=== PATIENT | male | born 1965 | race Caucasian/White ===

== ENCOUNTER 2018-07-20 09:58 | Emergency (ER) | payer OTHER ==
[~2018-07-20] VITALS: Ht 177.8 cm; Wt 108.9 kg
[2018-07-20 10:26] VITALS: BP_SYST 133
[2018-07-20 11:50] VITALS: BP_SYST 138
== END 2018-07-20 14:50 | disposition home or self-care (01) ==
LOC: SED 09:58
DX: L03.116 Cellulitis of left lower limb (principal); I87.2 Venous insufficiency (chronic) (peripheral); R03.0 Elevated blood-pressure reading, without diagnosis of hypertension
CPT/HCPCS: 93971; 99284

== ENCOUNTER 2018-09-30 11:33 | Emergency (ER) | payer OTHER ==
[~2018-09-30] VITALS: Ht 177.8 cm; Wt 145.1 kg
[2018-09-30 11:40] VITALS: BP_SYST 160
--- NOTE | 2018-09-30 11:45 | NUR ---
Patient presented to ER with left lower leg swelling. Patient A&Ox4, ambulatory to ER, skin pink, cap refil <3 sec. pain 2/10, denies N/V/D. Patient c/o swelling & reddness to LLE, patient states uncomfortable. Patient states he completed course of antibiotics from july 2018 dx of cellulitis to LLE.
--- NOTE | 2018-09-30 11:47 | NUR ---
Patient to ER bed 7 to gown for evaluation. Side rails up. Report given to Johana SETH.
--- NOTE | 2018-09-30 12:08 | NUR ---
ER Dr. Jules at bedside examining patient.
[2018-09-30] MEDS ORDERED: NACL 0.9% 1,000 ML IV ONE (12:11)
[2018-09-30] MEDS ORDERED: cefTRIAXone 1 GM IVPB PREMIX 50 ML IV ONE (12:15)
[2018-09-30] MEDS ORDERED: NS 1000 ML IV.SOLN IV ONE (12:15)
[2018-09-30] MEDS ORDERED: KETOROLAC TROMETHAMINE 30 MG VIAL IVP ONE (12:15)
[2018-09-30 12:42] LABS: BASOPHILS % (AUTO) 0.8 % (0.0-2.0); EOSINOPHILS # (AUTO) 0.1 K/uL (0.0-0.4); HEMATOCRIT 44.3 % (36-54); HEMOGLOBIN 15.1 g/dL (14.0-18.0); LYMPHOCYTES # (AUTO) 1.4 K/uL (1.0-5.5); LYMPHOCYTES % (AUTO) 26.9 % (20.5-51.5); MEAN CORPUSCULAR HEMOGLOBIN 30 pg (27-31); MEAN CORPUSCULAR HGB CONC 34 % (32-36); MEAN CORPUSCULAR VOLUME 89 fL (79.0-98.0); MONOCYTES # (AUTO) 0.3 K/uL (0.0-1.0); MONOCYTES % (AUTO) 5.8 % (1.7-9.3); NEUTROPHILS # (AUTO) 3.5 K/uL (1.8-7.7); NEUTROPHILS % (AUTO) 65.5 % (40.0-70.0); PLATELET COUNT (AUTO) 197 K/uL (130-430); RED BLOOD CELL COUNT(AUTO) 4.96 MIL/uL (4.2-6.2); WHITE BLOOD COUNT (AUTO) 5.4 K/uL (4.8-10.8)
[2018-09-30 13:03] LABS: CREATININE 1.2 mg/dL (0.55-1.30); POTASSIUM 3.9 mmol/L (3.5-5.1)
[2018-09-30 13:07] LABS: ALBUMIN 3.9 g/dL (3.4-4.8)
[2018-09-30] MEDS ORDERED: KETOROLAC TROMETHAMINE 15 MG VIAL ONE (13:19)
[2018-09-30 14:00] VITALS: BP_SYST 160
--- NOTE | 2018-09-30 14:00 | NUR ---
Patient given written and verbal discharge instructions and verbalizes understanding. ER MD discussed with patient the results and treatment provided. Patient in stable condition. ID arm band removed. IV catheter removed intact and dressing applied, no active bleeding. Rx of Tramadol and Keflex given. Patient educated on pain management and to follow up with PMD. Pain Scale 0/10. Opportunity for questions provided and answered. Medication side effect fact sheet provided.
== END 2018-09-30 12:35 | disposition home or self-care (01) ==
LOC: SED 11:33
DX: L03.116 Cellulitis of left lower limb (principal); R60.0 Localized edema; Z88.0 Allergy status to penicillin
CPT/HCPCS: 36415; 71045; 80053; 82550; 83605; 83690; 84484; 85025; 87040; 93971; 96365; 99284; J0696; J7030; J1885

== ENCOUNTER 2018-10-16 19:12 | Emergency (ER) | payer OTHER ==
[~2018-10-16] VITALS: Ht 180.3 cm; Wt 136.1 kg
[2018-10-16 19:25] VITALS: BP_SYST 159
--- NOTE | 2018-10-16 19:35 | NUR ---
Patient to ER bed 05 to gown for evaluation. Side rails up.
--- NOTE | 2018-10-16 19:40 | NUR ---
Pt is AAO x 4 and ambualtory, complains of left leg swelling from 12 days ago. Pt states he was seen in ED and was prescribed antibiotics. Pt finished antibiotic regimen and noticed that redness is moving up to thigh. Pt denies fever, N/V. No other injuries/complaints per patient or noted.
[2018-10-16] MEDS ORDERED: NACL 0.9% 1,000 ML IV ONE (19:42)
[2018-10-16] MEDS ORDERED: NS 1000 ML IV.SOLN IV ONE (19:45)
--- NOTE | 2018-10-16 19:57 | NUR ---
ER Dr. Jules at bedside examining patient.
[2018-10-16 20:06] LABS: BASOPHILS % (AUTO) 0.6 % (0.0-2.0); EOSINOPHILS # (AUTO) 0.1 K/uL (0.0-0.4); EOSINOPHILS % (AUTO) 1.1 % (0.0-4.0); HEMATOCRIT 41.1 % (36-54); HEMOGLOBIN 14.1 g/dL (14.0-18.0); LYMPHOCYTES # (AUTO) 1.4 K/uL (1.0-5.5); LYMPHOCYTES % (AUTO) 21.8 % (20.5-51.5); MEAN CORPUSCULAR HEMOGLOBIN 31 pg (27-31); MEAN CORPUSCULAR HGB CONC 34 % (32-36); MEAN CORPUSCULAR VOLUME 91 fL (79.0-98.0); MONOCYTES # (AUTO) 0.5 K/uL (0.0-1.0); MONOCYTES % (AUTO) 7.4 % (1.7-9.3); NEUTROPHILS # (AUTO) 4.4 K/uL (1.8-7.7); NEUTROPHILS % (AUTO) 69.1 % (40.0-70.0); PLATELET COUNT (AUTO) 191 K/uL (130-430); RED BLOOD CELL COUNT(AUTO) 4.53 MIL/uL (4.2-6.2); RED CELL DISTRIBUTION WIDTH 13.5 % (9.0-15.0); WHITE BLOOD COUNT (AUTO) 6.3 K/uL (4.8-10.8)
--- NOTE | 2018-10-16 20:19 | NUR ---
Ultrasound at bedside. pt tolerated well.
[2018-10-16 20:24] LABS: ALBUMIN 3.9 g/dL (3.4-4.8); CALCIUM 9.3 mg/dL (8.4-11.0); CREATININE 1.33 mg/dL (0.55-1.30); POTASSIUM 4.1 mmol/L (3.5-5.1); TOTAL BILIRUBIN 0.6 mg/dL (0.0-1.0)
[2018-10-16 21:03] LABS: BILIRUBIN,URINE NEGATIVE (NEGATIVE); BLOOD, URINE 1+ (NEGATIVE); CLARITY/URINE CLEAR (CLEAR); COLOR,URINE YELLOW (YELLOW); GLUCOSE,URINE NEGATIVE (NEGATIVE); KETONES,URINE NEGATIVE (NEGATIVE); LEUKOCYTE ESTERASE ,URINE NEGATIVE (NEGATIVE); NITRITE, URINE NEGATIVE (NEGATIVE); PH,URINE 5.5 (5.0-8.0); PROTEIN URINE NEGATIVE (NEGATIVE); UROBILINOGEN,URINE 0.2 (0.2-1.0)
[2018-10-16 21:04] LABS: INR 0.9 (0.80-1.20); PROTHROMBIN TIME 9.7 SECS (9.5-12.5)
[2018-10-16 21:47] VITALS: BP_SYST 144
--- NOTE | 2018-10-16 21:47 | NUR ---
Patient given written and verbal discharge instructions and verbalizes understanding. ER MD discussed with patient the results and treatment provided. Patient in stable condition. ID arm band removed. IV catheter removed intact and dressing applied, no active bleeding. Rx of Bactrim DS given. Patient educated on pain management and to follow up with PMD. Pain Scale 0. Opportunity for questions provided and answered. Medication side effect fact sheet provided.
[2018-10-16 22:19] LABS: BACTERIA,URINE FEW /HPF (None Seen); MUCUS,URINE 1+ /LPF (None Seen); RBC,URINE 0-3 /HPF (0-3); WBC,URINE 0-3 /HPF (0-3)
== END 2018-10-16 21:47 | disposition home or self-care (01) ==
LOC: SED 19:12
DX: L03.116 Cellulitis of left lower limb (principal); G89.29 Other chronic pain; R03.0 Elevated blood-pressure reading, without diagnosis of hypertension; Z88.0 Allergy status to penicillin
CPT/HCPCS: 36415; 71045; 80053; 81000; 82150; 82550; 83605; 83690; 84484; 85025; 85610; 85651; 85730; 87040; 93005; 93971; 99284; J7030